=== PATIENT | female | born 1965 | race Caucasian/White ===

== ENCOUNTER → 2018-07-15 | Outpatient (CLI) | payer OTHER ==
[~2018-07-15] MED LIST: CIPROFLOXACIN500 M1 PO; COZAAR 25 MG TA25 M2; EFFEXOR25 MG; FLAGYL500 MG PO; NORCO 5-325 TA1 EACH PO; REGLAN 10 MG TA10 M1 PO
== END ==
LOC: RAD 11:13
DX: Z12.31 Encounter for screening mammogram for malignant neoplasm of breast (principal)

== ENCOUNTER → 2019-04-16 | Outpatient (CLI) | payer BC | LOC: CAT 08:22 | DX: N28.1 Cyst of kidney, acquired (principal); M47.816 Spondylosis without myelopathy or radiculopathy, lumbar region; N26.1 Atrophy of kidney (terminal) ==

== ENCOUNTER → 2021-07-11 | Outpatient (CLI) | payer BC | LOC: BC 07-06 09:18 | PROVIDERS: ATTEND Nurse Practitioner | DX: Z12.31 Encounter for screening mammogram for malignant neoplasm of breast (principal); N64.89 Other specified disorders of breast ==